=== PATIENT | male | born 1980 | race African-American/Black ===

== ENCOUNTER 2018-08-07 03:21 | Inpatient (IN) | payer OTHER ==
--- NOTE | 2018-08-07 03:36 | HP ---
CIWA Score Nausea/Vomitin-Mild Nausea/No Vomiting Muscle Tremors: 1-None Visible, but Tarrs Anxiety: 1-Mildly Anxious Agitation: 0-Normal Activity Paroxysmal Sweats: 3 Orientation: 0-Oriented Tacttile Disturbances: 0-None Auditory Disturbances: 0-None Visual Disturbances: 0-None Headache: 0-None Present CIWA-Ar Total Score: 6 - Admission Criteria OASAS Guidelines: Admission for Medically Managed Detox: Requires at least one of the followin. CIWA greater than 12 2. Seizures within the past 24 hours 3. Delirium tremens within the past 24 hours 4. Hallucinations within the past 24 hours 5. Acute intervention needed for co occurring medical disorder 6. Acute intervention needed for co occurring psychiatric disorder 7. Severe withdrawal that cannot be handled at a lower level of care (continued vomiting, continued diarrhea, abnormal vital signs) requiring intravenous medication and/or fluids 8. Patient presents the following: Seizures, delirium tremens or hallucinations in the past 12 hours Admission Criteria Met: Admission criteria met Admission ROS S - [facility] Chief Complaint: SEEKING DETOX FOR C/O WITHDRAWAL SX'S TO INCLUDE HALLUCINATIONS (AVH) Allergies/Adverse Reactions: Allergies Allergy/AdvReac Type Severity Reaction Status Date / Time No Known Allergies Allergy Verified 08/07/18 03:28 History of Present Illness: 37 Y.O. MALE WITH HX/O ALCOHOLISM HERE FOR DETOX. CLIENT IS REFERRED BY [facility] AFTER BEING TRANSFERRED THERE FOR AVH, IRRACTIC BEHAVIOR REQUIRING 911 SERVICES. HE REPORTS BLACKING OUT IN THE PAST 12 HOURS. CLIENT HAS SINCE BEEN CLEARED AND RETURNS WITH DC PAPER. NO INTERVENTION NOTED; DX ALCOHOL INTOXICATION . HE PRESENTS A/0 X3. COHERENT, PRESENTLY DENIES ANY AVH, SI/HI. THIS IS HIS FIRST ADMISSION HERE BUT IS KNOWN TO OTHER DETOX/REHAB TXMENT. HIS LAST BEING AT [facility] SEVERAL YEARS AGO. HE DENIES ANY SIGNIFICANT CLEAN TIME. HE REPORTS THAT HE IS HOMELESS. PMHX- DENIES PSYCH- DENIES MEDS- DENIES Exam Limitations: No Limitations - Ebola screening Have you traveled outside of the country in the last 21 days: No Have you had contact with anyone from an Ebola affected area: No Have you been sick,other than usual withdrawal symptoms: No Do you have a fever: No - Review of Systems Constitutional: Chills, Loss of Appetite, Night Sweats, Changes in sleep EENT: reports: Other (CORRECTIVE LENSES) Respiratory: reports: No Symptoms reported Cardiac: reports: No Symptoms Reported GI: reports: Nausea, Poor Appetite, Poor Fluid Intake : reports: No Symptoms Reported Musculoskeletal: reports: No Symptoms Reported Integumentary: reports: No Symptoms Reported Neuro: reports: Tremors (FELT), Other (RECENT BLACK OUT) Endocrine: reports: No Symptoms Reported Hematology: reports: No Symptoms Reported Psychiatric: reports: Depressed Other Systems: Reviewed and Negative Patient History - Patient Medical History Hx Anemia: No Hx Asthma: No Hx Chronic Obstructive Pulmonary Disease (COPD): No Hx Cancer: No Hx Cardiac Disorders: No Hx Congestive Heart Failure: No Hx Hypertension: No Hx Hypercholesterolemia: No Hx Pacemaker: No HX Cerebrovascular Accident: No Hx Seizures: No Hx Diabetes: No Hx Gastrointestinal Disorders: No Hx Liver Disease: No Hx Genitourinary Disorders: No Hx Sexually Transmitted Disorders: No Hx Renal Disease (ESRD): No Hx Thyroid Disease: No Hx Human Immunodeficiency Virus (HIV): No Hx Hepatitis C: No Hx Depression: No Hx Suicide Attempt: No Hx Bipolar Disorder: No Hx Schizophrenia: No Other Medical History: DENIES - Patient Surgical History Past Surgical History: No - PPD History Previous Implant?: Yes Documented Results: Negative w/o proof Implanted On Prior [facility] Admission?: No PPD to be Administered?: Yes - Smoking Cessation Smoking history: Current every day smoker Have you smoked in the past 12 months: Yes Aproximately how many cigarettes per day: 20 Cigars Per Day: 0 Hx Chewing Tobacco Use: No Initiated information on smoking cessation: Yes 'Breaking Loose' booklet given: 08/07/18 - Substance & Tx. History Hx Alcohol Use: Yes Hx Substance Use: Yes Substance Use Type: Alcohol Hx Substance Use Treatment: Yes ([facility] - Substances Abused VODKA/BEER Route: Oral Frequency: Daily Amount used: 1 PINT/6-24OZ Age of first use: 16 Date of Last Use: 08/07/18 THC Route: Smoking Frequency: 1-3 times last 30 days Amount used: 2 PUFFS Age of first use: 17 Date of Last Use: 07/06/18 Family Disease History - Family Disease History Family Disease History: Diabetes: Mother, Other: Father (ETOH) Admission Physical Exam [facility] - Physical General Appearance: Yes: Appropriately Dressed, Alcohol on Breath, Tremorous ( FELT), Anxious HEENTM: Yes: EOMI, Normocephalic, Normal Voice, CHANDU, Pharynx Normal Respiratory: Yes: Chest Non-Tender, Lungs Clear, Normal Breath Sounds, No Respiratory Distress, No Accessory Muscle Use Neck: Yes: No masses,lesions,Nodules, Supple, Trachea in good position Breast: Yes: Breast Exam Deferred Cardiology: Yes: Regular Rhythm, Regular Rate, S1, S2 Abdominal: Yes: Normal Bowel Sounds, Non Tender, Flat, Soft Genitourinary: Yes: Within Normal Limits (NO C/O) Back: Yes: Normal Inspection Musculoskeletal: Yes: full range of Motion, Gait Steady Extremities: Yes: Normal Range of Motion, Non-Tender, Tremors (FELT) Neurological: Yes: Fully Oriented, Alert, Motor Strength 5/5, Depressed Affect Integumentary: Yes: Warm Lymphatic: Yes: Within Normal Limits - Diagnostic (1) Alcohol dependence with withdrawal, unspecified Current Visit: Yes Status: Acute Qualifiers: Complication of substance-induced condition: with unspecified complication Qualified Code(s): F10.239 - Alcohol dependence with withdrawal, unspecified (2) Nicotine dependence Current Visit: Yes Status: Acute Qualifiers: Nicotine product type: cigarettes Substance use status: uncomplicated Qualified Code(s): F17.210 - Nicotine dependence, cigarettes, uncomplicated (3) Substance induced mood disorder Current Visit: Yes Status: Acute (4) Black-out (not amnesia) Current Visit: Yes Status: Suspected (5) History of hallucinations Current Visit: Yes Status: Suspected (6) Depressed affect Current Visit: Yes Status: Acute (7) At risk for dehydration due to poor fluid intake Current Visit: Yes Status: Acute Cleared for Admission [facility] - Detox or Rehab [facility] Level of Care: Medically Managed Detox Regimen/Protocol: Librium Claeared for Rehab Admission: No [facility] Breath Alcohol Content Breath Alcohol Content: 0.206 Vital Signs - Vital Signs Vital Signs Refused: No Temperature: 97.3 F Temperature Source: Oral Pulse Rate: 83 Respiratory Rate: 20 Blood Pressure: 135/87 BP Location: Left Arm Blood Pressure Position: Sitting - Height Height: 5 ft 11 in - Weight Weight: 78.018 kg Weight Measurement Method: Standing Scale Body Mass Index (BMI): 24.0 - Bowel Function Bowel Movement: No Urine Drug Screen - Test Device Lot Number: [id number] Expiration Date: 12/09/19 - Control Is Test Valid: Yes - Results Drug Screen Negative: No Urine Drug Screen Results: THC-Marijuana
[2018-08-07 03:49] VITALS: BMI 24.0
[2018-08-07] MEDS ORDERED: MAGNESIUM CITRATE 300 ML BOTTLE PO PRN (03:49)
[2018-08-07] MEDS ORDERED: LOPERAMIDE HCL 2 MG CAPSULE PO PRN (03:49)
[2018-08-07] MEDS ORDERED: NICOTINE POLACRILEX 2 MG GUM BC PRN (03:49)
[2018-08-07] MEDS ORDERED: guaiFENesin/D-METHORPHAN HB 10 ML UNIT-DOSE CUPS PO PRN (03:49)
[2018-08-07] MEDS ORDERED: ACETAMINOPHEN 325 MG TABLET (FP) PO PRN (03:49)
[2018-08-07] MEDS ORDERED: P-EPHED 60MG/TRIPROLIDI 2.5MG TABLET PO PRN (03:49)
[2018-08-07] MEDS ORDERED: MAGNESIUM HYDROX 2400MG/30ML ORAL SUSPENSION 30 ML CUP PO PRN (03:49)
[2018-08-07] MEDS ORDERED: chlordiazePOXIDE HCL 25 MG CAPSULE PO PRN (03:49)
[2018-08-07] MEDS ORDERED: hydrOXYzine PAMOATE 50 MG CAPSULE (FP) PO PRN (03:49)
[2018-08-07] MEDS ORDERED: MENTHOL/PHENOL 1 EACH UD MM PRN (03:49)
[2018-08-07] MEDS ORDERED: IBUPROFEN 400 MG TABLET (FP) PO PRN (03:49)
[2018-08-07] MEDS ORDERED: MAG HYDROX/AL HYDROX/SIMETH 30 ML UNIT-DOSE CUP PO PRN (03:49)
[2018-08-07] MEDS: chlordiazePOXIDE HCL 25 MG CAPSULE PO SCH ×2 (04:46→10:11)
--- NOTE | 2018-08-07 07:40 | CONSULT ---
[facility] Psychiatric Consult - Data Date of interview: 08/07/18 Admission source: [facility] Identifying data: This is a 37 years old male, single, father of five, homeless , with no psychiatric hospitalization history, with long chronic history of Alcohol dependence, Cannabis and Nicotine dependendce as well.\Patient reporting Alcihil withdrawal symptoms and seeking detox. Substance Abuse History: Smoking history: Current every day smoker. Have you smoked in the past 12 months: Yes. Aproximately how many cigarettes per day: 20. Cigars Per Day: 0. Hx Chewing Tobacco Use: No. Initiated information on smoking cessation: Yes. 'Breaking Loose' booklet given: 08/07/18. - Substance & Tx. History. Hx Alcohol Use: Yes. Hx Substance Use: Yes. Substance Use Type : Alcohol. Hx [facility] - Substances Abused. VODKA/BEER. Route: Oral. Frequency: Daily. Amount used: 1 PINT/6-24OZ. Age of first use: 16. Date of Last Use: 08/07/18. THC. Route: Smoking. Frequency: 1-3 times last 30 days. Amount used: 2 PUFFS. Age of first use: 17. Date of Last Use: 07/06/18 Medical History: [place] any significant medical issues Psychiatric History: Patient reports history of depression and anxiety, reports bing history of psychiatric hospitalization , reports no suicidal, homicidal history, reports no medications taking prior to admission. Physical/Sexual Abuse/Trauma History: Denies Additional Comment: [facility]ation. [facility] Mental Status Exam - Mental Status Exam Alert and Oriented to: Person Cognitive Function: Fair Patient Appearance: Unkempt Mood: Sad Affect: Flat Patient Behavior: Sedated Speech Pattern: Delayed Voice Loudness: Mildly Soft/Quiet Thought Process: Circumstantial Thought Disorder: Being Controlled Hallucinations: Denies Suicidal Ideation: Denies Homicidal Ideation: Denies Insight/Judgement: Fair Sleep: Difficulty falling asleep Appetite: Weight loss Muscle strength/Tone: Mild Hypotonicity Gait/Station: Shuffling Additional Comments: Seroquel 100mg po bid. Depakote 500mg poqd, 1000mg po qhs Psychiatric Findings - Problem List ([place] 1, 2,3) (1) Alcohol dependence with withdrawal, unspecified Current Visit: Yes Status: Acute Qualifiers: Complication of substance-induced condition: with unspecified complication Qualified Code(s): F10.239 - Alcohol dependence with withdrawal, unspecified (2) Alcohol intoxication Current Visit: No Status: Acute Qualifiers: Complication of substance-induced condition: with unspecified complication Qualified Code(s): F10.929 - Alcohol use, unspecified with intoxication, unspecified (3) Nicotine dependence Current Visit: Yes Status: Acute Qualifiers: Nicotine product type: cigarettes Substance use status: uncomplicated Qualified Code(s): F17.210 - Nicotine dependence, cigarettes, uncomplicated (4) Substance induced mood disorder Current Visit: Yes Status: Acute (5) History of hallucinations Current Visit: Yes Status: Suspected - Initial Treatment Plan Initial Treatment Plan: Seroquel 100mg po bid. Depakote 500mg poqd, 1000mg po qhs
[2018-08-07 09:08] VITALS: BP 138/80; TEMP 98.2
[2018-08-07] MEDS ORDERED: NICOTINE 21 MG/24 HOURS TOPICAL PATCH TD SCH (10:00)
[2018-08-07] MEDS ORDERED: PRENATAL VITAMINS W/ FOLIC ACID TABLET (FP) PO SCH (10:00)
[2018-08-07 10:48] LABS: ALBUMIN 4.4 g/dl (3.4-5.0); ALK PHOS 65 U/L (45-117); ANION GAP 10 MMOL/L (8-16); BILIRUBIN,TOTAL 0.7 mg/dL (0.2-1); BLOOD UREA NITROGEN 11 mg/dL (7-18); CALCIUM 8.4 mg/dL (8.5-10.1); CHLORIDE 106 mmol/L (98-107); CO2 26 mmol/L (21-32); GLUCOSE,RANDOM 71 mg/dL (74-106); POTASSIUM 4.3 mmol/L (3.5-5.1); SGOT/AST 53 U/L (15-37); SGPT/ALT 75 U/L (13-61); SODIUM 141 mmol/L (136-145); TOT PROT 8.2 g/dl (6.4-8.2)
[2018-08-07 10:50] LABS: HEMATOCRIT 50.2 % (35.4-49); HEMOGLOBIN 16.4 GM/dL (11.7-16.9); MCHC 32.6 g/dl (32.0-35.9); MEAN CELL VOLUME 95.1 fl (80-96); MEAN PLT VOLUME 7.7 fl (7.5-11.1); PLATELET COUNT 220 K/MM3 (134-434); RBC 5.28 M/mm3 (4.00-5.60); RDW 12.9 % (11.9-15.9); WHITE BLOOD COUNT 4.3 K/mm3 (4.0-10.0)
[2018-08-07 11:38] VITALS: PULSE 85
--- NOTE | 2018-08-07 11:47 | EKG ---
Test Reason : Blood Pressure : / mmHG Vent. Rate : 070 BPM Atrial Rate : 070 BPM P-R Int : 158 ms QRS Dur : 114 ms QT Int : 420 ms P-R-T Axes : 069 018 040 degrees QTc Int : 453 ms NORMAL SINUS RHYTHM NORMAL ECG NO PREVIOUS ECGS AVAILABLE Confirmed by PEPPER DOHERTY, GIBSON ([id number]) on 08/07/2018 11:47:23 AM Referred By: Confirmed By:GIBSON PABON MD
--- NOTE | 2018-08-07 12:23 | DS ---
[facility] Detox Discharge Summary Admission Date: 08/07/18 Discharge Date: 08/07/18 - History Present History: Alcohol Dependence Additional Comments: 37 years old male admitted on 08/07/18 for alcohol withdrawal sx patient wants to attend family event today reported free from alcohol withdrawal sx after breakfast agrees to follow up with [facility] Pertinent Past History: patient was shower and had breakfast today alert oriented x 3 no acute distress denies suicidal denies homocidal no self destructive behavior - Physical Exam Results Vital Signs: Vital Signs Temperature 98.2 F 08/07/18 09:07 Pulse Rate 85 08/07/18 11:30 Respiratory Rate 18 08/07/18 09:07 Blood Pressure 138/80 08/07/18 09:07 O2 Sat by Pulse Oximetry (%) Pertinent Admission Physical Exam Findings: alcohol withdrawal sx Vital Signs Temperature 98.2 F 08/07/18 09:07 Pulse Rate 85 08/07/18 11:30 Respiratory Rate 18 08/07/18 09:07 Blood Pressure 138/80 08/07/18 09:07 O2 Sat by Pulse Oximetry (%) Laboratory Last Values WBC 4.3 K/mm3 (4.0-10.0) 08/07/18 07:30 RBC 5.28 M/mm3 (4.00-5.60) 08/07/18 07:30 Hgb 16.4 GM/dL (11.7-16.9) 08/07/18 07:30 Hct 50.2 % (35.4-49) H 08/07/18 07:30 MCV 95.1 fl (80-96) 08/07/18 07:30 MCH 31.0 pg (25.7-33.7) 08/07/18 07:30 MCHC 32.6 g/dl (32.0-35.9) 08/07/18 07:30 RDW 12.9 % (11.9-15.9) 08/07/18 07:30 Plt Count 220 K/MM3 (134-434) 08/07/18 07:30 MPV 7.7 fl (7.5-11.1) 08/07/18 07:30 Sodium 141 mmol/L (136-145) 08/07/18 07:30 Potassium 4.3 mmol/L (3.5-5.1) 08/07/18 07:30 Chloride 106 mmol/L (98-107) 08/07/18 07:30 Carbon Dioxide 26 mmol/L (21-32) 08/07/18 07:30 Anion Gap 10 MMOL/L (8-16) 08/07/18 07:30 BUN 11 mg/dL (7-18) 08/07/18 07:30 Creatinine 1.0 mg/dL (0.55-1.3) 08/07/18 07:30 Creat Clearance w eGFR > 60 (>60) 08/07/18 07:30 Random Glucose 71 mg/dL (74-106) L 08/07/18 07:30 Calcium 8.4 mg/dL (8.5-10.1) L 08/07/18 07:30 Total Bilirubin 0.7 mg/dL (0.2-1) 08/07/18 07:30 AST 53 U/L (15-37) H 08/07/18 07:30 ALT 75 U/L (13-61) H 08/07/18 07:30 Alkaline Phosphatase 65 U/L (45-117) 08/07/18 07:30 Total Protein 8.2 g/dl (6.4-8.2) 08/07/18 07:30 Albumin 4.4 g/dl (3.4-5.0) 08/07/18 07:30 RPR Titer Nonreactive (NONREACTIVE) 08/07/18 07:30 lab noted - Treatment Hospital Course: Detox Protocol Followed, Responded well Patient has Accepted a Rehab Referral to: [facility] - Medication Discharge Medications: Ambulatory Orders NK [No Known Home Medication] 08/06/18 - Diagnosis (1) Alcohol dependence with withdrawal, unspecified Status: Acute Qualifiers: Complication of substance-induced condition: with unspecified complication Qualified Code(s): F10.239 - Alcohol dependence with withdrawal, unspecified (2) Nicotine dependence Status: Acute Qualifiers: Nicotine product type: cigarettes Substance use status: in withdrawal Qualified Code(s): F17.213 - Nicotine dependence, cigarettes, with withdrawal - AMA Did Patient Leave Against Medical Advice: Yes
[2018-08-07 13:16] LABS: URINE APPEARANCE SLCLOUDY; URINE BILIRUBIN NEGATIVE (<2.0 mg/dL); URINE COLOR YELLOW; URINE GLUCOSE (UA) 1+ (NEGATIVE); URINE KETONE NEGATIVE (NEGATIVE); URINE LEUK ESTERASE NEGATIVE (NEGATIVE); URINE NITRITE NEGATIVE (NEGATIVE); URINE PROTEIN NEGATIVE (NEGATIVE); URINE UROBILINOGEN NEGATIVE mg/dL (0.2-1.0)
[2018-08-07] MEDS ORDERED: MELATONIN 5 MG TABLETS PO PRN (22:00)
[2018-08-07] MEDS ORDERED: THIAMINE HCL 100 MG TABLET (FP) PO SCH (22:00)
[2018-08-08] MEDS ORDERED: chlordiazePOXIDE HCL 25 MG CAPSULE PO SCH (05:00)
[2018-08-09] MEDS ORDERED: chlordiazePOXIDE 5 MG CAPSULE PO SCH (05:00)
[2018-08-10] MEDS ORDERED: chlordiazePOXIDE HCL 10 MG CAPSULE PO SCH (05:00)
== END 2018-08-07 11:45 | disposition left against medical advice (07) | DRG 770 ==
LOC: YASAS 03:21 → Y6N 03:27
PROC: HZ2ZZZZ Detoxification Services for Substance Abuse Treatment (ICD-10-PCS; principal; 2018-08-06)
DX: F10.230 Alcohol dependence with withdrawal, uncomplicated (principal); F10.220 Alcohol dependence with intoxication, uncomplicated; F17.213 Nicotine dependence, cigarettes, with withdrawal; F19.24 Other psychoactive substance dependence with psychoactive substance-induced mood disorder; F32.9 Major depressive disorder, single episode, unspecified; E63.8 Other specified nutritional deficiencies
CPT/HCPCS: 36415; 80053; 81003; 85027; 86593; 93005; 93010

== ENCOUNTER 2022-12-11 08:27 | Inpatient (IN) | payer OTHER ==
[2022-12-11 08:55] VITALS: BMI 24.3
[2022-12-11] MEDS ORDERED: LOPERAMIDE HCL 2 MG CAPSULE PO PRN (08:58)
[2022-12-11] MEDS ORDERED: MAG HYDROX/AL HYDROX/SIMETH 30 ML UNIT-DOSE CUP PO PRN (08:58)
[2022-12-11] MEDS ORDERED: BENZOCAINE/MENTHOL (CHLORASEPTIC ) LOZENGE MM PRN (08:58)
[2022-12-11] MEDS ORDERED: IBUPROFEN 400 MG TABLET (FP) PO PRN (08:58)
[2022-12-11] MEDS ORDERED: MAGNESIUM HYDROX 2400MG/30ML ORAL SUSPENSION 30 ML CUP PO PRN (08:58)
[2022-12-11] MEDS ORDERED: ONDANSETRON *ODT* 4 MG TABLET SL PRN (08:58)
[2022-12-11] MEDS ORDERED: guaiFENesin 600 MG TABLET.ER (FP) PO PRN (08:58)
[2022-12-11] MEDS ORDERED: ACETAMINOPHEN 325 MG TABLET (FP) PO PRN (08:58)
[2022-12-11] MEDS ORDERED: BENZONATATE 200 MG CAPSULE PO PRN (08:58)
[2022-12-11] MEDS ORDERED: IBUPROFEN 600 MG TABLET (FP) PO PRN (08:58)
[2022-12-11] MEDS ORDERED: POLYETHYLENE GLYCOL (HEALTHYLAX) 3350 17 GM PACKET PO PRN (08:58)
[2022-12-11] MEDS ORDERED: NICOTINE 14 MG/24 HOURS TOPICAL PATCH TD PRN (08:58)
[2022-12-11] MEDS ORDERED: BISMUTH SUBSALICYLATE 524 MG/30 ML PO PRN (08:58)
[2022-12-11] MEDS ORDERED: DICYCLOMINE HCL 10 MG CAPSULE PO PRN (08:58)
[2022-12-11] MEDS ORDERED: PRENATAL VITAMINS W/ FOLIC ACID TABLET (FP) PO ONE (09:45)
[2022-12-11] MEDS: PRENATAL VITAMINS W/ FOLIC ACID TABLET (FP) PO SCH (09:48)
[2022-12-11] MEDS: chlordiazePOXIDE HCL 25 MG CAPSULE PO SCH ×3 (12:03→22:15)
[2022-12-11 14:56] LABS: HEMATOCRIT 42.1 % (35.4-49); MCH 31.1 pg (25.7-33.7); MCHC 33.4 g/dl (32.0-35.9); MEAN CELL VOLUME 93.1 fl (80-96); MEAN PLT VOLUME 7.6 fl (7.5-11.1); PLATELET COUNT 269 10^3/uL (134-434); RBC 4.52 M/mm3 (4.00-5.60); RDW 13.6 % (11.9-15.9); WHITE BLOOD COUNT 3.7 K/mm3 (4.0-10.0)
[2022-12-11 15:30] LABS: ALBUMIN 3.9 g/dl (3.4-5.0); BLOOD UREA NITROGEN 6.9 mg/dL (7-18); CALCIUM 9.2 mg/dL (8.5-10.1)
[2022-12-11 15:33] LABS: CREATININE 0.8 mg/dL (0.55-1.3)
[2022-12-11 15:35] LABS: BILIRUBIN,TOTAL 0.2 mg/dL (0.2-1); TOT PROT 7.2 g/dl (6.4-8.2)
[2022-12-11] MEDS: hydrOXYzine PAMOATE 25 MG CAPSULE (FP) PO PRN (17:18)
[2022-12-11] MEDS: THIAMINE HCL 100 MG TABLET (FP) PO SCH (22:15)
[2022-12-11] MEDS: QUEtiapine FUMARATE 100 MG TABLET (FP) PO SCH (22:15)
[2022-12-11] MEDS: MELATONIN 5 MG TABLETS PO SCH (22:15)
[2022-12-11] MEDS: METHOCARBAMOL 500 MG TABLET PO PRN (22:16)
[2022-12-12] MEDS: chlordiazePOXIDE HCL 25 MG CAPSULE PO SCH ×4 (05:55→22:06)
[2022-12-12] MEDS: hydrOXYzine PAMOATE 25 MG CAPSULE (FP) PO PRN ×3 (05:57→17:33)
[2022-12-12] MEDS: METHOCARBAMOL 500 MG TABLET PO PRN ×3 (05:57→19:46)
[2022-12-12] MEDS: NICOTINE 10 MG CARTRIDGE (INHALER) IH PRN ×4 (09:02→22:10)
[2022-12-12] MEDS: NICOTINE POLACRILEX 2 MG GUM BUC PRN ×2 (09:04→13:18)
[2022-12-12] MEDS: PRENATAL VITAMINS W/ FOLIC ACID TABLET (FP) PO SCH (10:10)
[2022-12-12] MEDS: cloNIDine HCL 0.1 MG TABLET PO PRN (11:48)
[2022-12-12] MEDS: chlordiazePOXIDE HCL 25 MG CAPSULE PO PRN (19:45)
[2022-12-12] MEDS: THIAMINE HCL 100 MG TABLET (FP) PO SCH (22:06)
[2022-12-12] MEDS: MELATONIN 5 MG TABLETS PO SCH (22:06)
[2022-12-12] MEDS: QUEtiapine FUMARATE 100 MG TABLET (FP) PO SCH (22:06)
[2022-12-12] MEDS: NAPROXEN 375 MG TABLET PO PRN (22:07)
[2022-12-13] MEDS: hydrOXYzine PAMOATE 25 MG CAPSULE (FP) PO PRN ×2 (05:23→13:47)
[2022-12-13] MEDS: chlordiazePOXIDE HCL 25 MG CAPSULE PO SCH ×4 (05:23→22:50)
[2022-12-13] MEDS: METHOCARBAMOL 500 MG TABLET PO PRN (05:23)
[2022-12-13] MEDS: cloNIDine HCL 0.1 MG TABLET PO PRN ×2 (05:24→17:56)
[2022-12-13] MEDS: chlordiazePOXIDE HCL 25 MG CAPSULE PO PRN ×2 (08:35→13:44)
[2022-12-13] MEDS: NICOTINE 10 MG CARTRIDGE (INHALER) IH PRN ×3 (08:43→23:15)
[2022-12-13] MEDS: PRENATAL VITAMINS W/ FOLIC ACID TABLET (FP) PO SCH (10:13)
[2022-12-13] MEDS: NICOTINE POLACRILEX 2 MG GUM BUC PRN ×2 (13:45→23:16)
[2022-12-13] MEDS: NAPROXEN 375 MG TABLET PO PRN (17:55)
[2022-12-13] MEDS: MELATONIN 5 MG TABLETS PO SCH (22:49)
[2022-12-13] MEDS: THIAMINE HCL 100 MG TABLET (FP) PO SCH (22:49)
[2022-12-13] MEDS: QUEtiapine FUMARATE 100 MG TABLET (FP) PO SCH (22:49)
[2022-12-14] MEDS ORDERED: chlordiazePOXIDE HCL 10 MG CAPSULE PO PRN
[2022-12-14] MEDS: cloNIDine HCL 0.1 MG TABLET PO PRN ×2 (05:59→18:24)
[2022-12-14] MEDS: chlordiazePOXIDE HCL 10 MG CAPSULE PO SCH ×4 (05:59→22:23)
[2022-12-14] MEDS: METHOCARBAMOL 500 MG TABLET PO PRN ×2 (06:03→22:23)
[2022-12-14] MEDS: hydrOXYzine PAMOATE 25 MG CAPSULE (FP) PO PRN ×2 (06:03→14:45)
[2022-12-14] MEDS: PRENATAL VITAMINS W/ FOLIC ACID TABLET (FP) PO SCH (10:08)
[2022-12-14] MEDS: NAPROXEN 375 MG TABLET PO PRN ×2 (10:11→18:29)
[2022-12-14] MEDS: NICOTINE POLACRILEX 2 MG GUM BUC PRN (10:24)
[2022-12-14] MEDS: NICOTINE 10 MG CARTRIDGE (INHALER) IH PRN ×3 (10:24→22:26)
[2022-12-14] MEDS: QUEtiapine FUMARATE 100 MG TABLET (FP) PO SCH (22:23)
[2022-12-14] MEDS: THIAMINE HCL 100 MG TABLET (FP) PO SCH (22:23)
[2022-12-14] MEDS: MELATONIN 5 MG TABLETS PO SCH (22:23)
[2022-12-15] MEDS: chlordiazePOXIDE HCL 10 MG CAPSULE PO SCH ×2 (05:48→16:53)
[2022-12-15] MEDS: NAPROXEN 375 MG TABLET PO PRN ×2 (10:16→22:20)
[2022-12-15] MEDS: PRENATAL VITAMINS W/ FOLIC ACID TABLET (FP) PO SCH (10:16)
[2022-12-15] MEDS: METHOCARBAMOL 500 MG TABLET PO PRN ×2 (10:16→16:53)
[2022-12-15] MEDS: hydrOXYzine PAMOATE 25 MG CAPSULE (FP) PO PRN ×2 (10:16→16:53)
[2022-12-15] MEDS: NICOTINE 10 MG CARTRIDGE (INHALER) IH PRN ×2 (14:02→20:35)
[2022-12-15] MEDS: NICOTINE POLACRILEX 2 MG GUM BUC PRN ×2 (14:03→20:38)
[2022-12-15] MEDS ORDERED: chlordiazePOXIDE HCL 10 MG CAPSULE PO ONE (22:01)
[2022-12-15] MEDS: QUEtiapine FUMARATE 100 MG TABLET (FP) PO SCH (22:17)
[2022-12-15] MEDS: THIAMINE HCL 100 MG TABLET (FP) PO SCH (22:17)
[2022-12-15] MEDS: MELATONIN 5 MG TABLETS PO SCH (22:17)
[2022-12-16] MEDS: hydrOXYzine PAMOATE 25 MG CAPSULE (FP) PO PRN ×2 (01:29→10:11)
[2022-12-16] MEDS ORDERED: chlordiazePOXIDE HCL 10 MG CAPSULE PO ONE (05:00)
[2022-12-16] MEDS: NICOTINE 10 MG CARTRIDGE (INHALER) IH PRN ×2 (05:26→09:02)
[2022-12-16 09:34] VITALS: BP 147/106; PULSE 68; RESP 16; TEMP 98.8
[2022-12-16] MEDS: PRENATAL VITAMINS W/ FOLIC ACID TABLET (FP) PO SCH (10:08)
[2022-12-16] MEDS: NAPROXEN 375 MG TABLET PO PRN (10:09)
== END 2022-12-16 12:22 | disposition home or self-care (01) | DRG 775 ==
LOC: YASAS 08:27 → Y3N 09:20
PROVIDERS: ADMIT Allergy & Immunology; ATTEND Surgery
PROC: HZ2ZZZZ Detoxification Services for Substance Abuse Treatment (ICD-10-PCS; principal; 2022-12-11)
DX: F10.230 Alcohol dependence with withdrawal, uncomplicated (principal); F12.20 Cannabis dependence, uncomplicated; F16.20 Hallucinogen dependence, uncomplicated; F17.210 Nicotine dependence, cigarettes, uncomplicated; F31.9 Bipolar disorder, unspecified; F41.9 Anxiety disorder, unspecified; G47.00 Insomnia, unspecified; R74.01 Elevation of levels of liver transaminase levels; Z28.310 Unvaccinated for COVID-19; Z28.9 Immunization not carried out for unspecified reason
CPT/HCPCS: 36415; 80053; 85027; 86780; 87811; C9803-CS; U0003; U0005